=== PATIENT | female | born 1940 | race Caucasian/White ===

== ENCOUNTER → 2016-11-15 | Outpatient (CLI) | payer MEDICARE ==
[~2016-11-15] MED LIST: ACTOS30 MG PO; ASPIRIN81 M1 PO; ATARAX25 MG PO; B121000 MCG/1 IM; BACTRIM DS 8001 TA1 PO; BUMEX1 MG PO; CARDIZEM CD240 MG PO; CARDIZEM120 MG PO; CARDURA1 MG PO; CELEBREX200 MG PO; CIPRO500 MG PO; CLARITIN10 MG PO; COLACE100 MG PO; COREG25 MG PO; COUMADIN10 MG PO; COZAAR100 MG PO; COZAAR50 MG PO; DETROL LA4 MG PO; DIFLUCAN150 MG PO; FLEXERIL10 MG PO; FOSAMAX70 MG PO; HYDRALAZINE HCL25 MG PO; JANUMET 500 MG-1 TA1 PO; KENALOG0.1% TP; LANOXIN0.25 MG PO; LANTUS100 U/ML SC; LASIX40 MG PO; LIPITOR20 MG PO; MACROBID100 M1 PO; MICRO-K10 MEQ PO; MICRONASE5 MG PO; NORVASC10 MG PO; NOVOLOG FLEX100 U/ML SC; NYSTOP100000 U/G T; OYSTER CALCIUM500 M1 PO; PREDNICOT20 MG PO; PRILOSEC OTC20 MG PO; PROTONIX40 MG PO; REGLAN10 MG PO; SANCTURA20 MG PO; TESSALON PERLE100 M1 PO; TRIAMCINOLONE0.0251 T; VALTREX1 GM PO; VITAMIN D50000 I2 PO; XANAX0.25 MG PO; XANAX0.5 MG PO; ZOLOFT25 MG PO
[2016-11-15 17:03] LABS: INTERNATIONAL NORM RATIO 3.9 (2.0-3.5); PROTHROMBIN TIME 44.5 SECONDS (9.0-12.4)
== END ==
LOC: LAB 02:13
PROVIDERS: Internal Medicine Cardiovascular Disease
DX: I48.91 Unspecified atrial fibrillation (principal); Z79.01 Long term (current) use of anticoagulants

== ENCOUNTER → 2016-11-30 | Outpatient (CLI) | payer MEDICARE ==
[2016-11-30 13:23] LABS: INTERNATIONAL NORM RATIO 1.9 (2.0-3.5); PROTHROMBIN TIME 21.5 SECONDS (9.0-12.4)
== END ==
LOC: LAB 01:55
PROVIDERS: Internal Medicine Cardiovascular Disease
DX: Z01.419 Encounter for gynecological examination (general) (routine) without abnormal findings (principal); I48.91 Unspecified atrial fibrillation; Z79.01 Long term (current) use of anticoagulants; Z85.038 Personal history of other malignant neoplasm of large intestine

== ENCOUNTER → 2016-12-14 | Outpatient (CLI) | payer MEDICARE ==
[2016-12-14 16:17] LABS: INTERNATIONAL NORM RATIO 3.2 (2.0-3.5); PROTHROMBIN TIME 36.1 SECONDS (9.0-12.4)
== END ==
LOC: LAB 02:34
PROVIDERS: Internal Medicine Cardiovascular Disease
DX: I48.91 Unspecified atrial fibrillation (principal); Z79.01 Long term (current) use of anticoagulants

== ENCOUNTER → 2016-12-21 | Outpatient (CLI) | payer MEDICARE ==
[2016-12-21 16:27] LABS: INTERNATIONAL NORM RATIO 1.2 (2.0-3.5); PROTHROMBIN TIME 12.3 SECONDS (9.0-12.4)
== END ==
LOC: LAB 02:00
PROVIDERS: Internal Medicine Cardiovascular Disease
DX: I48.91 Unspecified atrial fibrillation (principal); Z79.01 Long term (current) use of anticoagulants

== ENCOUNTER → 2016-12-26 | Outpatient (CLI) | payer MEDICARE ==
[2016-12-26 17:04] LABS: INTERNATIONAL NORM RATIO 2.9 (2.0-3.5); PROTHROMBIN TIME 32.4 SECONDS (9.0-12.4)
== END ==
LOC: LAB 02:37
PROVIDERS: Internal Medicine Cardiovascular Disease
DX: I48.91 Unspecified atrial fibrillation (principal)

== ENCOUNTER → 2017-01-12 | Outpatient (CLI) | payer MEDICARE ==
[2017-01-12 16:19] LABS: INTERNATIONAL NORM RATIO 2.3 (2.0-3.5); PROTHROMBIN TIME 25.4 SECONDS (9.0-12.4)
== END ==
LOC: LAB 19:17
PROVIDERS: Internal Medicine Cardiovascular Disease
DX: I48.91 Unspecified atrial fibrillation (principal)

== ENCOUNTER 2017-01-29 15:25 | Inpatient (IN) | payer MEDICARE ==
[~2017-01-29] VITALS: Ht 160 cm; Wt 103.4 kg
--- NOTE | ~2017-01-29 | WRIGHTHP ---
[place], [place] PATIENT HISTORY AND PHYSICAL EXAM NAME: SUZANNA CHOWDHURY [facility] #: [id number] UNIT #: [id number] ROOM: 401 DOCTOR: NICOLE FISCHER MD BIRTHDATE: [birth year] DOS: 01/29/2017 HISTORY OF PRESENT ILLNESS: 1. The patient is a 76-year-old female with a past medical history of diverticulosis on colonoscopy. 2. Benign essential hypertension. 3. Type 2 diabetes mellitus. 4. Morbid obesity. 5. Chronic atrial fibrillation. 6. History of colovesical fistula and repair. 7. Ventral abdominal hernia repaired with mesh. The patient presented to the Emergency Department with complaints of dizziness. The patient had some nausea, vomiting and frequent urination. The patient was found to be dehydrated on evaluation in the Emergency Department and recommended for admission for treatment for infection and dehydration. The patient is also having difficulty with ambulation. The patient also had acute cystitis and hematuria. REVIEW OF SYSTEMS: LUNGS: No increasing shortness of breath or wheezing. GASTROINTESTINAL: Some nausea and vomiting. No diarrhea or constipation. CARDIOVASCULAR: No chest pain or palpitations. The patient has chronic atrial fibrillation. SOCIAL HISTORY: Lives at home. Denies smoking cigarettes, alcohol and drug abuse. FAMILY HISTORY: Noncontributory. HOME MEDICATIONS: The patient was taking Bactrim, Neurontin, Lipitor, Colace, diltiazem, losartan, insulin, Bumex, Coumadin, digoxin, omeprazole, Coreg, Zoloft and Jardiance. ALLERGIES: Known allergies to PENICILLIN and LATEX. PHYSICAL EXAMINATION: GENERAL: Alert, oriented, morbidly obese, standard exam except for generalized weakness. VITAL SIGNS: Blood pressure 119/66, heart rate of 50 beats per minute, breathing 20 times per minute, temperature 98 degrees Fahrenheit. LABORATORY DATA: Urine cultures are negative so far, BUN and creatinine 25 and 1. No leukocytosis. CBC normal. CT of the head without any acute process. Chest x-ray with no acute findings. White cell count improved from yesterday, it was 13,600. IMPRESSION: 1. The patient with urinary tract infection and cystitis with being treated with Levaquin and improving. [place], [place] PATIENT HISTORY AND PHYSICAL EXAM [facility]: [facility] [id number] UN[facility] #: [id number] ROOM: [facility] DOCTOR: AALIYAH LOBO,NICOLE Hernandez BIRTHDATE: [birth year] 2. Dehydration with BUN and creatinine elevation to 25 and 1.2, treated with hydration with IV fluids and patient is improving. 3. Obesity, generalized weakness and disability. The patient states she is ambulating normally in the hallways and would like to be discharged to home rather than sent for rehab with physical therapy because she is feeling better now after treatment. 4. Chronic atrial fibrillation with controlled heart rates with digoxin and diltiazem and patient anticoagulated with Coumadin. 5. The patient with chronic atrial fibrillation, anticoagulated with Coumadin. INR of 1.8. 6. Urinary tract infection secondary to urine infection, resolved with treatment with Levaquin. 7. Type 2 diabetes mellitus with reasonably controlled blood sugars ranging between 140-200 mostly. 8. Nausea, vomiting with some dehydration as completely resolved. The patient is tolerating a diet. Her blood pressure is staying normal and she can be discharged to home on oral antibiotics. The patient wants to go home because she is feeling well and she will be followed up in our office within 2 days. NICOLE FISCHER MD CM:HISPHYS:PATIENT HISTORY AND PHYSICAL EXAMINATION [phone] NICOLE FISCHER MD 01/30/171957 interface
[2017-01-29 15:35] VITALS: BP 150/66
[2017-01-29] MEDS ORDERED: JARDIANCE25 MG PO (15:37)
[2017-01-29] MEDS ORDERED: NEURONTIN100 MG PO (15:39)
[2017-01-29] MEDS ORDERED: BACTRIM DS 8001 TA1 PO (15:41)
[2017-01-29 15:59] LABS: BILIRUBIN 1+ (NEGATIVE); BLOOD NEGATIVE (NEGATIVE); CLARITY SL CLOUDY (CLEAR); COLOR YELLOW (YELLOW); GLUCOSE 2+ (NEGATIVE); KETONE TRACE (NEGATIVE); LEUKO ESTERASE TRACE (NEGATIVE); NITRITE NEGATIVE (NEGATIVE); PH 7.5 (5.0-9.0); PROTEIN 2+ (NEGATIVE)
[2017-01-29 16:07] LABS: BACTERIA TRACE; EPITHELIAL CELLS 50-55; MUCOUS TRACE; RBC 0-2 rbc/hpf (0-2)
[2017-01-29 16:08] LABS: URINE REFLEX COMMENT YES (NO); WBC 51-100 wbc/hpf (0-5)
[2017-01-29 16:19] LABS: BASO # 0.1 10*3/uL (0.0-0.1); BASO % 0.6 % (0.0-1.0); EOS # 0.1 10*3/uL (0.0-0.4); EOS % 0.7 % (1.0-4.0); HEMATOCRIT 43.5 % (37.0-47.0); HEMOGLOBIN 14.3 g/dl (12.0-16.0); LYMPH # 4.1 10*3/uL (1.3-4.4); LYMPH % 30.4 % (27.0-41.0); MEAN CELL VOLUME 90.1 fl (81.0-99.0); MEAN CORPUSCULAR HGB 29.6 pg (27.0-31.0); MEAN CORPUSCULAR HGB CONC 32.9 g/dl (33.0-37.0); MEAN PLATELET VOLUME 11.2 fl (9.6-12.3); MONO % 7.6 % (3.0-9.0); NEUT # 8.2 10*3/uL (2.3-7.9); NEUT % 60.4 % (47.0-73.0); PLATELET COUNT AUTOMATED 266 10*3/uL (130-400); RED BLOOD COUNT 4.83 10*6/uL (4.10-5.10); RED CELL DISTRI WIDTH 14.1 % (0-14.5); WHITE BLOOD COUNT 13.6 10*3/uL (4.8-10.8)
[2017-01-29 16:26] LABS: INTERNATIONAL NORM RATIO 1.8 (2.0-3.5); PROTHROMBIN TIME 20.3 SECONDS (9.0-12.4)
[2017-01-29 16:33] LABS: ALBUMIN 3.5 gm/dl (3.1-4.5); BILIRUBIN, TOTAL 0.4 mg/dl (0.2-1.0); POTASSIUM 3.7 mmol/L (3.5-5.1); TOTAL PROTEIN 7.1 gm/dL (6.4-8.2)
[2017-01-29 18:11] VITALS: BP 181/64
[2017-01-29 20:00] VITALS: BP 166/75
[2017-01-30] VITALS: BP 146/65
[2017-01-30 06:43] LABS: BASO % 0.5 % (0.0-1.0); EOS # 0.2 10*3/uL (0.0-0.4); EOS % 2.1 % (1.0-4.0); HEMATOCRIT 39.8 % (37.0-47.0); HEMOGLOBIN 12.4 g/dl (12.0-16.0); LYMPH # 2.5 10*3/uL (1.3-4.4); LYMPH % 30.9 % (27.0-41.0); MEAN CORPUSCULAR HGB 29.1 pg (27.0-31.0); MEAN CORPUSCULAR HGB CONC 31.2 g/dl (33.0-37.0); MEAN PLATELET VOLUME 11.6 fl (9.6-12.3); MONO # 0.7 10*3/uL (0.1-1.0); MONO % 8.8 % (3.0-9.0); NEUT # 4.6 10*3/uL (2.3-7.9); NEUT % 57.3 % (47.0-73.0); PLATELET COUNT AUTOMATED 188 10*3/uL (130-400); RED BLOOD COUNT 4.26 10*6/uL (4.10-5.10); RED CELL DISTRI WIDTH 14.3 % (0-14.5); WHITE BLOOD COUNT 7.9 10*3/uL (4.8-10.8)
[2017-01-30 06:51] LABS: MEAN CELL VOLUME 93.4 fl (81.0-99.0)
[2017-01-30 07:08] LABS: BUN 25 mg/dl (7-24); CARBON DIOXIDE 27 mmol/L (21-32); CHLORIDE 106 mmol/L (98-107); EST GLOM FILT AFRICAN AMERICAN > 60 ml/min; GLUCOSE 159 mg/dL (65-99); POTASSIUM 3.8 mmol/L (3.5-5.1); SODIUM 142 mmol/L (136-145)
[2017-01-30 08:00] VITALS: BP 150/62
[2017-01-30 12:00] VITALS: BP 162/83
[2017-01-30 16:00] VITALS: BP 119/66
[2017-01-30] MEDS ORDERED: CLARITIN10 MG PO (18:27)
[2017-01-30] MEDS ORDERED: CIPRO500 MG PO (18:27)
== END 2017-01-30 19:37 | disposition home or self-care (01) | DRG 690 ==
LOC: ED 15:25 → EDHOLD 17:50 → 4E 18:31
PROVIDERS: Internal Medicine; Registered Nurse
DX: N30.01 Acute cystitis with hematuria (principal); I48.1 Persistent atrial fibrillation; E86.0 Dehydration; I48.2 Chronic atrial fibrillation; E11.9 Type 2 diabetes mellitus without complications; Z68.41 Body mass index [BMI] 40.0-44.9, adult; K57.90 Diverticulosis of intestine, part unspecified, without perforation or abscess without bleeding; I10 Essential (primary) hypertension; E66.01 Morbid (severe) obesity due to excess calories; Z91.040 Latex allergy status; Z88.0 Allergy status to penicillin; Z79.899 Other long term (current) drug therapy; Z79.4 Long term (current) use of insulin; Z90.710 Acquired absence of both cervix and uterus; Z90.49 Acquired absence of other specified parts of digestive tract; Z80.9 Family history of malignant neoplasm, unspecified

== ENCOUNTER → 2017-02-07 | Outpatient (CLI) | payer MEDICARE ==
[~2017-02-07] MED LIST changes: +JARDIANCE25 MG PO; +NEURONTIN100 MG PO
[2017-02-07 13:35] LABS: INTERNATIONAL NORM RATIO 2.2 (2.0-3.5); PROTHROMBIN TIME 24.6 SECONDS (9.0-12.4)
== END ==
LOC: LAB 00:38
PROVIDERS: Internal Medicine Cardiovascular Disease
DX: I48.91 Unspecified atrial fibrillation (principal); Z79.01 Long term (current) use of anticoagulants

== ENCOUNTER → 2017-03-15 | Outpatient (CLI) | payer MEDICARE ==
[2017-03-15 16:17] LABS: INTERNATIONAL NORM RATIO 2.5 (2.0-3.5); PROTHROMBIN TIME 27.5 SECONDS (9.0-12.4)
== END ==
LOC: LAB 00:11
PROVIDERS: Internal Medicine Cardiovascular Disease
DX: I48.91 Unspecified atrial fibrillation (principal); Z79.01 Long term (current) use of anticoagulants

== ENCOUNTER → 2017-04-20 | Outpatient (CLI) | payer MEDICARE ==
[2017-04-20 14:57] LABS: INTERNATIONAL NORM RATIO 2.2 (2.0-3.5)
== END | disposition home or self-care (01) ==
LOC: LAB 00:16
PROVIDERS: Internal Medicine Cardiovascular Disease
DX: I48.91 Unspecified atrial fibrillation (principal); Z79.01 Long term (current) use of anticoagulants

== ENCOUNTER 2017-04-23 08:26 | Emergency (ER) | payer MEDICARE ==
[~2017-04-23] VITALS: Ht 160 cm; Wt 106.6 kg
[2017-04-23 08:33] VITALS: BP 149/76
[2017-04-23] MEDS ORDERED: NEURONTIN100 MG PO (10:25)
== END 2017-04-23 10:40 | disposition home or self-care (01) ==
LOC: ED 08:26
DX: M47.26 Other spondylosis with radiculopathy, lumbar region (principal); M51.36 Other intervertebral disc degeneration, lumbar region; E11.9 Type 2 diabetes mellitus without complications; E78.5 Hyperlipidemia, unspecified; I48.91 Unspecified atrial fibrillation; Z88.0 Allergy status to penicillin; Z91.040 Latex allergy status; Z79.899 Other long term (current) drug therapy; Z90.2 Acquired absence of lung [part of]

== ENCOUNTER → 2017-05-10 | Outpatient (CLI) | payer MEDICARE ==
[2017-05-10 13:31] LABS: INTERNATIONAL NORM RATIO 2.2 (2.0-3.5)
== END | disposition home or self-care (01) ==
LOC: LAB 02:11 → MRI 13:00 → LAB 13:00
PROVIDERS: Internal Medicine
DX: I48.91 Unspecified atrial fibrillation (principal); M54.9 Dorsalgia, unspecified; Z79.01 Long term (current) use of anticoagulants

== ENCOUNTER → 2017-06-15 | Outpatient (CLI) | payer MEDICARE ==
[2017-06-15 15:01] LABS: INTERNATIONAL NORM RATIO 1.8 (2.0-3.5)
== END | disposition home or self-care (01) ==
LOC: LAB 02:48
PROVIDERS: Internal Medicine Cardiovascular Disease
DX: I48.91 Unspecified atrial fibrillation (principal); Z79.01 Long term (current) use of anticoagulants

== ENCOUNTER → 2017-06-28 | Outpatient (CLI) | payer MEDICARE ==
[2017-06-28 14:29] LABS: INTERNATIONAL NORM RATIO 2.5 (2.0-3.5)
== END | disposition home or self-care (01) ==
LOC: LAB 13:45
PROVIDERS: Internal Medicine Cardiovascular Disease
DX: I48.91 Unspecified atrial fibrillation (principal); Z79.01 Long term (current) use of anticoagulants

== ENCOUNTER → 2017-08-08 | Outpatient (CLI) | payer MEDICARE ==
[2017-08-08 14:52] LABS: INTERNATIONAL NORM RATIO 2.4 (2.0-3.5)
== END | disposition home or self-care (01) ==
LOC: LAB 13:48
PROVIDERS: Internal Medicine Cardiovascular Disease
DX: I48.91 Unspecified atrial fibrillation (principal); Z79.01 Long term (current) use of anticoagulants

== ENCOUNTER → 2017-09-13 | Outpatient (CLI) | payer MEDICARE | END | disposition home or self-care (01) | LOC: LAB 15:55 | PROVIDERS: Internal Medicine Cardiovascular Disease | DX: I48.91 Unspecified atrial fibrillation (principal) ==

== ENCOUNTER 2017-10-15 11:36 | Emergency (ER) | payer MEDICARE ==
[~2017-10-15] VITALS: Ht 160 cm; Wt 107.0 kg
[2017-10-15 12:33] LABS: BILIRUBIN NEGATIVE (NEGATIVE); BLOOD 3+ (NEGATIVE); CLARITY CLOUDY (CLEAR); COLOR YELLOW (YELLOW); GLUCOSE 3+ (NEGATIVE); KETONE NEGATIVE (NEGATIVE); LEUKO ESTERASE NEGATIVE (NEGATIVE); NITRITE NEGATIVE (NEGATIVE); SPECIFIC GRAVITY 1.015 (1.005-1.030); UROBILINOGEN 0.2 E.U./dl (0.2-1.0)
[2017-10-15 12:48] LABS: BACTERIA 1+; CALCIUM OXALATE CRYSTALS 1+; RBC 31-40 rbc/hpf (0-2); WBC 16-20 wbc/hpf (0-5)
== END 2017-10-15 15:41 | disposition home or self-care (01) ==
LOC: ED 11:36
PROVIDERS: Emergency Medicine
DX: N28.89 Other specified disorders of kidney and ureter (principal); R31.9 Hematuria, unspecified; I48.91 Unspecified atrial fibrillation; R73.9 Hyperglycemia, unspecified; Z79.01 Long term (current) use of anticoagulants; Z79.4 Long term (current) use of insulin; Z88.0 Allergy status to penicillin; Z91.040 Latex allergy status

== ENCOUNTER → 2017-10-15 | Outpatient (CLI) | payer MEDICARE ==
[2017-10-15 11:40] LABS: BASO # 0.1 10*3/uL (0.0-0.1); BASO % 0.8 % (0.0-1.0); EOS # 0.2 10*3/uL (0.0-0.4); HEMATOCRIT 43.8 % (37.0-47.0); HEMOGLOBIN 14.2 g/dl (12.0-16.0); LYMPH # 2.4 10*3/uL (1.3-4.4); LYMPH % 30.7 % (27.0-41.0); MEAN CELL VOLUME 94.8 fl (81.0-99.0); MEAN CORPUSCULAR HGB 30.7 pg (27.0-31.0); MEAN CORPUSCULAR HGB CONC 32.4 g/dl (33.0-37.0); MEAN PLATELET VOLUME 11.6 fl (9.6-12.3); MONO # 0.6 10*3/uL (0.1-1.0); MONO % 7.4 % (3.0-9.0); NEUT # 4.6 10*3/uL (2.3-7.9); NEUT % 58.7 % (47.0-73.0); PLATELET COUNT AUTOMATED 171 10*3/uL (130-400); RED BLOOD COUNT 4.62 10*6/uL (4.10-5.10); RED CELL DISTRI WIDTH 14.1 % (0-14.5); WHITE BLOOD COUNT 7.9 10*3/uL (4.8-10.8)
[2017-10-15 12:15] LABS: ALBUMIN 3.2 gm/dl (3.1-4.5); CREATININE 1.11 mg/dL (0.55-1.02); FREE T4 1.03 ng/dl (0.76-1.46); POTASSIUM 4.1 mmol/L (3.5-5.1); TOTAL PROTEIN 6.5 gm/dL (6.4-8.2)
[2017-10-15 12:20] LABS: THYROID STIM HORMONE (HS) 1.25 uIU/ml (0.358-4.75)
[2017-10-15 12:41] LABS: INTERNATIONAL NORM RATIO 1.9 (2.0-3.5)
[2017-10-15 13:06] LABS: VITAMIN D, 25-HYDROXY 30.8 ng/mL (30-100)
== END | disposition home or self-care (01) ==
LOC: LAB 11:19
PROVIDERS: Internal Medicine; Internal Medicine Cardiovascular Disease
DX: Z13.1 Encounter for screening for diabetes mellitus (principal); Z13.220 Encounter for screening for lipoid disorders; Z00.01 Encounter for general adult medical examination with abnormal findings; I48.91 Unspecified atrial fibrillation; R53.81 Other malaise; E55.9 Vitamin D deficiency, unspecified; E11.9 Type 2 diabetes mellitus without complications; E78.2 Mixed hyperlipidemia; Z79.01 Long term (current) use of anticoagulants

== ENCOUNTER → 2017-11-01 | Outpatient (CLI) | payer MEDICARE ==
[2017-11-01 11:40] LABS: INTERNATIONAL NORM RATIO 1.8 (2.0-3.5)
== END | disposition home or self-care (01) ==
LOC: LAB 00:04
PROVIDERS: Internal Medicine Cardiovascular Disease
DX: I48.91 Unspecified atrial fibrillation (principal)

== ENCOUNTER → 2017-11-08 | Outpatient (CLI) | payer MEDICARE ==
[2017-11-08 13:34] LABS: INTERNATIONAL NORM RATIO 1.9 (2.0-3.5)
== END | disposition home or self-care (01) ==
LOC: LAB 12:49
PROVIDERS: Internal Medicine Cardiovascular Disease
DX: I48.91 Unspecified atrial fibrillation (principal); Z79.01 Long term (current) use of anticoagulants

== ENCOUNTER → 2017-12-18 | Outpatient (CLI) | payer MEDICARE ==
[2017-12-18 17:04] LABS: INTERNATIONAL NORM RATIO 1.4 (2.0-3.5)
== END | disposition home or self-care (01) ==
LOC: LAB 16:39
PROVIDERS: Internal Medicine Cardiovascular Disease
DX: I48.91 Unspecified atrial fibrillation (principal)

== ENCOUNTER → 2018-01-10 | Outpatient (CLI) | payer MEDICARE | END | disposition home or self-care (01) | LOC: LAB 15:55 | PROVIDERS: Internal Medicine Cardiovascular Disease | DX: I48.91 Unspecified atrial fibrillation (principal); Z79.01 Long term (current) use of anticoagulants ==

== ENCOUNTER → 2018-02-04 | Outpatient (CLI) | payer MEDICARE ==
[~2018-02-04] MED LIST changes: +AMITRIPTYLINE H10 M1 PO; +BUMETANIDE1 MG PO; +CEFUROXIME AXE250 MG PO; +DITROPAN XL5 MG PO; +KLOR-CON M2020 ME1 PO; +LANTUS SOL100 UNIT/1 SC; -LANTUS100 U/ML SC; +MIRALAX17 GM PO; +NEXIUM20 M1 PO; +NORCO 5-325 TA1 EACH PO; +VALTREX1000 MG PO; +ZOVIRAX5 GM T
[2018-02-04 17:41] LABS: INTERNATIONAL NORM RATIO 1.2 (2.0-3.5)
== END ==
LOC: LAB 17:15
PROVIDERS: Internal Medicine Cardiovascular Disease
DX: I48.91 Unspecified atrial fibrillation (principal); Z79.01 Long term (current) use of anticoagulants

== ENCOUNTER → 2018-02-14 | Outpatient (CLI) | payer MEDICARE ==
[2018-02-14 13:17] LABS: INTERNATIONAL NORM RATIO 1.5 (2.0-3.5)
== END | disposition home or self-care (01) ==
LOC: LAB 01:03
PROVIDERS: Internal Medicine Cardiovascular Disease
DX: I48.91 Unspecified atrial fibrillation (principal); Z79.01 Long term (current) use of anticoagulants

== ENCOUNTER 2018-03-06 17:08 | Inpatient (IN) | payer MEDICARE ==
[~2018-03-06] VITALS: Ht 160 cm; Wt 99.5 kg
--- NOTE | ~2018-03-06 | DS ---
[place], [place] DISCHARGE SUMMARY NAME: SUZANNA CHOWDHURY [facility] #: [id number] UNIT #: [id number] ROOM: 409 DOCTOR: ZHEN ESTEVES MD BIRTHDATE: [birth year] DOS: 03/08/2018 DIAGNOSES: 1. Urinary tract infection, sepsis ruled out. Urine culture is still pending. 2. Adult failure to thrive. 3. Renal cell carcinoma, status post nephrectomy a week ago. 4. Type 2 diabetes mellitus. 5. Chronic atrial fibrillation, on long-term use of anticoagulants. 6. History of ventral hernia repair. 7. Benign hypertension. 8. Mixed hyperlipidemia. 9. History of genital herpes. MEDICATIONS: She is on are Ceftin 250 twice daily for 5 days, Coreg 25 mg twice daily, Zoloft 25 mg at bedtime, warfarin 7.5 mg Sunday, Sunday, , Sunday and 5 mg Sunday, Sunday, Sunday; atorvastatin 20 mg at bedtime, Colace 200 daily, diltiazem 120 daily, losartan 50 daily, Lantus 42 units at bedtime, insulin sliding scale, Jardiance 25 daily, Neurontin 100 b.i.d., Bumex 1 mg daily p.r.n. for leg swelling, potassium 20 daily p.r.n. with Bumex, [place] 5 q.6 hours p.r.n., Xanax 0.5 twice a day p.r.n., Valtrex 1000 p.o. b.i.d., oxybutynin XL 5 mg b.i.d., acyclovir ointment local application, MiraLax 17 grams daily, Protonix 40 daily, amitriptyline 10 daily. HOSPITAL COURSE: The patient is a 77-year-old, comes in with complaints of abdominal pain, increased frequency of urination. The patient was admitted with diagnosis of acute kidney injury, UTI and adult failure to thrive. The patient was recently discharged from [facility] after a nephrectomy, is unable to take care of herself at home. She is placed on IV fluids, IV antibiotics. Urine culture was ordered, which is not available yet. Social service consult and PT, OT consult was obtained. Blood sugars are being checked and covered. This morning, we are awaiting insurance precertification, if it is obtained, the patient can go to rehab today for physical therapy. We will readjust antibiotics once we have the culture results. [place], [place] DISCHARGE SUMMARY NAME: SUZANNA CHOWDHURY UNIT #: [id number] ROOM: [facility] DOCTOR: ZHEN ESTEVES MD BIRTHDATE: [birth year] ZHEN ESTEVES MD CM:DISCHARG [id number] ZHEN ESTEVES MD 03/08/18 1452 interface
--- NOTE | ~2018-03-06 | PR ---
[place], [place] PROGRESS NOTE NAME: SUZANNA CHOWDHURY [facility] #: [id number] UNIT #: [id number] ROOM: 409 DOCTOR: ZHEN ESTEVES MD BIRTHDATE: [birth year] DOS: 03/08/2018 SUBJECTIVE: The patient is doing about the same, did have a good night. She had her bowel movement yesterday after multiple new meds. She does not have any new complaints today. OBJECTIVE: VITAL SIGNS: Blood pressure is 168/60, pulse of 92, respirations 20, temperature 98.9 at midnight. LUNGS: Diminished breath sounds. No wheezes, rales, rhonchi heard. HEART: Irregular. ABDOMEN: Obese. Some discomfort in her abdomen from her recent surgery. EXTREMITIES: Without any edema. LABORATORY DATA: No labs available this morning. ASSESSMENT AND PLAN: 1. Renal carcinoma status post nephrectomy. 2. Adult failure to thrive for placement to rehab today. 3. Urinary tract infection with urine culture not completed yet. The patient is on IV antibiotics. We will switch to p.o. on discharge. 4. Type 2 diabetes mellitus. Blood sugars are slightly on the high side because Lantus has been on hold. We will restart the medicine. ZHEN ESTEVES MD CM:PNTRANS 07 01 ZHEN ESTEVES MD 03/08/181999 interface
--- NOTE | ~2018-03-06 | EKG ---
[place], [place] ELECTROCARDIOGRAM REPORT NAME[facility] [id number] UNIT #: [id number] ROOM: 409 DOCTOR: NICO DRAFT REPORT BIRTHDATE: [birth year] [facility] Test Date: 2018-03-06 Test Time: 17:54:56 Pat Name: SUZANNA CHOWDHURY Department: Room: Gender: F Outreach Coordinator: : 1940 Requested By: JOSE ELLIOTT Order Number: [id number] Reading MD: Karely Germain MD Measurements Intervals [place] Rate: 78 P: 32 NV: 157 QRS: -54 QRSD: 114 T: 34 QT: 410 QTc: 468 Interpretive Statements Sinus rhythm iLBBB Electronically Signed On 03-08-2018 11:06:39 PDT by Karely Germain MD CM:EKGRPT:ELECTROCARDIOGRAM REPORT [id number] JOSE ELLIOTT EPIPHANY DRAFT REPORT JOSE ELLIOTT
--- NOTE | ~2018-03-06 | WRIGHTHP ---
[place], [place] PATIENT HISTORY AND PHYSICAL EXAM NAME: SUZANNA CHOWDHURY [facility] #: [id number] UNIT #: [id number] ROOM: 409 DOCTOR: ZHEN ESTEVES MD BIRTHDATE: [birth year] DOS: 03/06/2018 HISTORY OF PRESENT ILLNESS: The patient is 77 years old, very well known to us. She underwent nephrectomy for renal cell CA on the right side at [facility] on February 28. After a few days' stay, she was released to home day before yesterday. The visiting nurses called saying that the patient was unable to take care of herself at home and would require a skilled placement. The patient's family was informed to bring her to the Emergency Room for possible placement for PT, OT. In the ER, she was also found to have a UTI and she is admitted. She denies having any chest pains or palpitations, but has a lot of pain in her right side of the abdomen; does not have any of the chest pains or palpitation. She has not had a bowel movement for days. She has been on [place] for pain, this may have constipated her. PAST MEDICAL HISTORY: Significant for: 1. Renal cell CA, status post nephrectomy. 2. Benign hypertension. 3. Type 2 diabetes mellitus. 4. Chronic atrial fibrillation, on long-term use of anticoagulants. 5. Ventral abdominal hernia repair. 6. Diverticulosis. 7. Mixed hyperlipidemia. MEDICATIONS: She is on currently are Xanax 0.5 b.i.d. p.r.n., atorvastatin 20 daily, Bumex 1 mg daily p.r.n., Coreg 25 b.i.d., diltiazem 120 daily, Colace 100 daily, Jardiance 25 daily, Nexium 20 daily, gabapentin 100 b.i.d., [place] 5 q. 6 p.r.n., losartan 50 daily, oxybutynin 5 b.i.d., Protonix 40 daily, potassium 40 daily p.r.n., Zoloft 25 at bedtime, Detrol-LA 4 mg b.i.d., Valtrex 1000 b.i.d.; warfarin 7.5 on Sunday, , Sunday and Sunday, and 5 rest of the days; insulin Lantus 42 units at bedtime, Zovirax cream for local application. SOCIAL HISTORY: Nonsmoker, does not use any alcohol. PHYSICAL EXAMINATION: GENERAL: She is awake and alert and oriented. VITAL SIGNS: Graphic trend shows a pressure of 132/70, pulse of 80, respirations 14, afebrile. LUNGS: Diminished breath sounds. No wheezes, rales or rhonchi heard. HEART: Regular. ABDOMEN: Obese, soft, tenderness throughout her abdomen. Large scar in the right side of the abdomen. Wound is clean. There is no evidence of any drainage or cellulitis. EXTREMITIES: Without any edema. ASSESSMENT AND PLAN: The patient presents with: 1. Abdominal pain, most likely from underlying urinary tract infection. Urine culture has been sent. IV antibiotics were started along with IV fluids. 2. Obstipation. The patient is given 1 bottle of mag citrate, which has not really done anything, so Fleet's enema and Dulcolax will be continued. 3. Benign hypertension, controlled. [place], [place] PATIENT HISTORY AND PHYSICAL EXAM [facility]: [facility] [id number] [facility] #: [id number] ROOM: [facility] DOCTOR: ZHEN ESTEVES MD BIRTHDATE: [birth year] 4. Chronic atrial fibrillation, on Coumadin. Protime is subtherapeutic, possibly because the Coumadin has been on hold for the last several days. We will restart the Coumadin. 5. Adult failure to thrive. PT/OT will be consulted and the patient will need placement for short term for rehab purposes. ZHEN ESTEVES MD CM:HISPHYS:PATIENT HISTORY AND PHYSICAL EXAMINATION 2 ZHEN ESTEVES MD 03/07/1821 interface
[~2018-03-06 17:08] MED LIST changes: -AMITRIPTYLINE H10 M1 PO; -BUMETANIDE1 MG PO; -CEFUROXIME AXE250 MG PO; -DITROPAN XL5 MG PO; -KLOR-CON M2020 ME1 PO; -MIRALAX17 GM PO; -NEXIUM20 M1 PO; -NORCO 5-325 TA1 EACH PO; -VALTREX1000 MG PO; -ZOVIRAX5 GM T
[2018-03-06 17:10] VITALS: BP 123/70
[2018-03-06 18:04] LABS: BASO % 0.4 % (0.0-1.0); EOS # 0.4 10*3/uL (0.0-0.4); EOS % 4.8 % (1.0-4.0); HEMATOCRIT 33.7 % (37.0-47.0); HEMOGLOBIN 10.3 g/dl (12.0-16.0); LYMPH # 1.9 10*3/uL (1.3-4.4); LYMPH % 25.4 % (27.0-41.0); MEAN CELL VOLUME 91.8 fl (81.0-99.0); MEAN CORPUSCULAR HGB 28.1 pg (27.0-31.0); MEAN CORPUSCULAR HGB CONC 30.6 g/dl (33.0-37.0); MEAN PLATELET VOLUME 10.8 fl (9.6-12.3); MONO # 0.7 10*3/uL (0.1-1.0); MONO % 9.5 % (3.0-9.0); NEUT # 4.5 10*3/uL (2.3-7.9); NEUT % 59.6 % (47.0-73.0); PLATELET COUNT AUTOMATED 212 10*3/uL (130-400); RED BLOOD COUNT 3.67 10*6/uL (4.10-5.10); RED CELL DISTRI WIDTH 14.4 % (0-14.5); WHITE BLOOD COUNT 7.5 10*3/uL (4.8-10.8)
[2018-03-06 18:20] LABS: ALBUMIN 2.7 gm/dl (3.1-4.5); CREATININE 1.59 mg/dL (0.55-1.02); POTASSIUM 4.2 mmol/L (3.5-5.1); TOTAL PROTEIN 6.3 gm/dL (6.4-8.2)
[2018-03-06 18:41] LABS: BILIRUBIN NEGATIVE (NEGATIVE); BLOOD NEGATIVE (NEGATIVE); COLOR YELLOW (YELLOW); GLUCOSE 3+ (NEGATIVE); KETONE TRACE (NEGATIVE); LEUKO ESTERASE NEGATIVE (NEGATIVE); NITRITE POSITIVE (NEGATIVE); UROBILINOGEN 0.2 E.U./dl (0.2-1.0)
[2018-03-06 18:49] LABS: BACTERIA 3+; CLARITY SL CLOUDY (CLEAR); EPITHELIAL CELLS 0-2; WBC 31-40 wbc/hpf (0-5)
[2018-03-06 19:20] VITALS: BP 116/68
[2018-03-06 20:20] VITALS: BP 159/74
[2018-03-06] MEDS ORDERED: NEXIUM20 M1 PO (20:55)
[2018-03-06] MEDS ORDERED: BUMETANIDE1 MG PO (21:00)
[2018-03-06] MEDS ORDERED: KLOR-CON M2020 ME1 PO (21:01)
[2018-03-06] MEDS ORDERED: NORCO 5-325 TA1 EACH PO (21:03)
[2018-03-06] MEDS ORDERED: DETROL LA4 MG PO (21:03)
[2018-03-06] MEDS ORDERED: XANAX0.5 MG PO (21:06)
[2018-03-06] MEDS ORDERED: VALTREX1000 MG PO (21:08)
[2018-03-06] MEDS ORDERED: DITROPAN XL5 MG PO (21:09)
[2018-03-06] MEDS ORDERED: MIRALAX17 GM PO (21:10)
[2018-03-06] MEDS ORDERED: ZOVIRAX5 GM T (21:10)
[2018-03-06] MEDS ORDERED: PROTONIX40 MG PO (21:12)
[2018-03-07] VITALS: BP 158/64
[2018-03-07 06:57] LABS: BASO % 0.6 % (0.0-1.0); EOS # 0.4 10*3/uL (0.0-0.4); EOS % 5.7 % (1.0-4.0); HEMATOCRIT 30.9 % (37.0-47.0); HEMOGLOBIN 9.5 g/dl (12.0-16.0); LYMPH # 1.8 10*3/uL (1.3-4.4); LYMPH % 25.4 % (27.0-41.0); MEAN CELL VOLUME 92.5 fl (81.0-99.0); MEAN CORPUSCULAR HGB 28.4 pg (27.0-31.0); MEAN CORPUSCULAR HGB CONC 30.7 g/dl (33.0-37.0); MEAN PLATELET VOLUME 11.4 fl (9.6-12.3); MONO # 0.7 10*3/uL (0.1-1.0); MONO % 9.7 % (3.0-9.0); NEUT # 4.1 10*3/uL (2.3-7.9); NEUT % 58.2 % (47.0-73.0); PLATELET COUNT AUTOMATED 181 10*3/uL (130-400); RED BLOOD COUNT 3.34 10*6/uL (4.10-5.10); RED CELL DISTRI WIDTH 14.5 % (0-14.5)
[2018-03-07 07:27] LABS: POTASSIUM 4.8 mmol/L (3.5-5.1)
[2018-03-07 07:32] LABS: CREATININE 1.39 mg/dL (0.55-1.02)
[2018-03-07 08:00] VITALS: BP 158/64
[2018-03-07 12:00] VITALS: BP 151/57
[2018-03-07 16:00] VITALS: BP 142/61
[2018-03-07 20:00] VITALS: BP 136/63
[2018-03-08] VITALS: BP 168/60
[2018-03-08] MEDS ORDERED: AMITRIPTYLINE H10 M1 PO (00:44)
[2018-03-08] MEDS ORDERED: CEFUROXIME AXE250 MG PO (07:07)
[2018-03-08 08:00] VITALS: BP 163/59
[2018-03-08 12:00] VITALS: BP 116/91
== END 2018-03-08 18:40 | disposition other institution (70) | DRG 682 ==
LOC: ED 17:08 → 4E 19:30 → EDHOLD 19:30 → 4E 19:53
PROVIDERS: Internal Medicine; Nurse Practitioner
DX: N17.9 Acute kidney failure, unspecified (principal); G93.41 Metabolic encephalopathy; I48.2 Chronic atrial fibrillation; E11.9 Type 2 diabetes mellitus without complications; N30.00 Acute cystitis without hematuria; E78.2 Mixed hyperlipidemia; E66.9 Obesity, unspecified; K59.00 Constipation, unspecified; I10 Essential (primary) hypertension; K57.90 Diverticulosis of intestine, part unspecified, without perforation or abscess without bleeding; R62.7 Adult failure to thrive; Z90.5 Acquired absence of kidney; Z85.528 Personal history of other malignant neoplasm of kidney; Z79.01 Long term (current) use of anticoagulants; Z88.0 Allergy status to penicillin; Z91.040 Latex allergy status; Z91.048 Other nonmedicinal substance allergy status; Z88.8 Allergy status to other drugs, medicaments and biological substances; Z79.899 Other long term (current) drug therapy; Z79.4 Long term (current) use of insulin; Z90.49 Acquired absence of other specified parts of digestive tract; Z90.710 Acquired absence of both cervix and uterus; Z80.8 Family history of malignant neoplasm of other organs or systems; Z68.38 Body mass index [BMI] 38.0-38.9, adult

== ENCOUNTER → 2018-05-07 | Outpatient (CLI) | payer MEDICARE ==
[~2018-05-07] MED LIST changes: +AMITRIPTYLINE H10 M1 PO; +BUMETANIDE1 MG PO; +CEFUROXIME AXE250 MG PO; +DITROPAN XL5 MG PO; +KLOR-CON M2020 ME1 PO; +MIRALAX17 GM PO; +NEXIUM20 M1 PO; +NORCO 5-325 TA1 EACH PO; +VALTREX1000 MG PO; +ZOVIRAX5 GM T
[2018-05-07 13:26] LABS: INTERNATIONAL NORM RATIO 2.1 (2.0-3.5)
== END | disposition home or self-care (01) ==
LOC: LAB 12:09
PROVIDERS: Internal Medicine Cardiovascular Disease
DX: I48.91 Unspecified atrial fibrillation (principal); I42.9 Cardiomyopathy, unspecified; Z79.01 Long term (current) use of anticoagulants

== ENCOUNTER → 2018-06-07 | Outpatient (CLI) | payer MEDICARE ==
[2018-06-07 15:36] LABS: INTERNATIONAL NORM RATIO 2.2 (2.0-3.5)
== END | disposition home or self-care (01) ==
LOC: LAB 14:50
PROVIDERS: Internal Medicine Cardiovascular Disease
DX: I48.91 Unspecified atrial fibrillation (principal); I42.9 Cardiomyopathy, unspecified; Z79.01 Long term (current) use of anticoagulants

== ENCOUNTER → 2018-07-09 | Outpatient (CLI) | payer MEDICARE | END | disposition home or self-care (01) | LOC: LAB 03:32 | PROVIDERS: Internal Medicine Cardiovascular Disease | DX: I48.91 Unspecified atrial fibrillation (principal); I42.9 Cardiomyopathy, unspecified; Z79.01 Long term (current) use of anticoagulants ==

== ENCOUNTER → 2018-07-16 | Outpatient (CLI) | payer MEDICARE ==
[2018-07-16 13:01] LABS: INTERNATIONAL NORM RATIO 2.4 (2.0-3.5)
== END | disposition home or self-care (01) ==
LOC: LAB 13:41
PROVIDERS: Internal Medicine Cardiovascular Disease
DX: I48.91 Unspecified atrial fibrillation (principal); I42.9 Cardiomyopathy, unspecified; Z79.01 Long term (current) use of anticoagulants

== ENCOUNTER → 2018-08-27 | Outpatient (CLI) | payer MEDICARE ==
[2018-08-27 17:28] LABS: INTERNATIONAL NORM RATIO 1.2 (2.0-3.5)
== END | disposition home or self-care (01) ==
LOC: LAB 15:37
PROVIDERS: Internal Medicine Cardiovascular Disease
DX: I48.91 Unspecified atrial fibrillation (principal); I42.9 Cardiomyopathy, unspecified; Z79.01 Long term (current) use of anticoagulants

== ENCOUNTER → 2018-09-04 | Outpatient (CLI) | payer MEDICARE ==
[2018-09-04 14:52] LABS: ALBUMIN 3.3 gm/dl (3.1-4.5); CREATININE 1.43 mg/dL (0.55-1.02); FREE T4 1.11 ng/dl (0.76-1.46); POTASSIUM 4.1 mmol/L (3.5-5.1); TOTAL PROTEIN 6.6 gm/dL (6.4-8.2)
[2018-09-04 14:58] LABS: THYROID STIM HORMONE (HS) 0.963 uIU/ml (0.358-4.75)
[2018-09-05 10:11] LABS: CREATININE,URINE 104.2 mg/dL (Not Estab.); MICRO ALBUMIN/CRE RATIO 159.3 (0.0-30.0)
== END | disposition home or self-care (01) ==
LOC: LAB 13:42
PROVIDERS: Internal Medicine Endocrinology, Diabetes & Metabolism
DX: E11.3311 Type 2 diabetes mellitus with moderate nonproliferative diabetic retinopathy with macular edema, right eye (principal); E55.9 Vitamin D deficiency, unspecified; I48.91 Unspecified atrial fibrillation; I42.9 Cardiomyopathy, unspecified; R63.5 Abnormal weight gain; Z79.01 Long term (current) use of anticoagulants

== ENCOUNTER → 2018-10-03 | Outpatient (CLI) | payer MEDICARE ==
[2018-10-03 15:57] LABS: INTERNATIONAL NORM RATIO 1.9 (2.0-3.5)
== END | disposition home or self-care (01) ==
LOC: LAB 02:07
PROVIDERS: Internal Medicine Cardiovascular Disease
DX: I48.91 Unspecified atrial fibrillation (principal); I42.9 Cardiomyopathy, unspecified; Z79.01 Long term (current) use of anticoagulants

== ENCOUNTER → 2018-10-18 | Outpatient (CLI) | payer MEDICARE ==
[2018-10-18 11:22] LABS: INTERNATIONAL NORM RATIO 2.5 (2.0-3.5)
== END | disposition home or self-care (01) ==
LOC: LAB 00:47
PROVIDERS: Internal Medicine Cardiovascular Disease
DX: I48.91 Unspecified atrial fibrillation (principal); I42.9 Cardiomyopathy, unspecified; Z79.01 Long term (current) use of anticoagulants

== ENCOUNTER → 2018-11-07 | Outpatient (CLI) | payer MEDICARE ==
[2018-11-07 16:19] LABS: INTERNATIONAL NORM RATIO 2.3 (2.0-3.5)
== END | disposition home or self-care (01) ==
LOC: LAB 03:21
PROVIDERS: Internal Medicine Cardiovascular Disease
DX: I48.91 Unspecified atrial fibrillation (principal); I42.9 Cardiomyopathy, unspecified; Z79.01 Long term (current) use of anticoagulants

== ENCOUNTER → 2018-12-05 | Outpatient (CLI) | payer MEDICARE ==
[2018-12-05 14:32] LABS: INTERNATIONAL NORM RATIO 3.1 (2.0-3.5)
== END | disposition home or self-care (01) ==
LOC: LAB 01:21
PROVIDERS: Internal Medicine Cardiovascular Disease
DX: I48.91 Unspecified atrial fibrillation (principal); I42.9 Cardiomyopathy, unspecified; Z79.01 Long term (current) use of anticoagulants

== ENCOUNTER → 2018-12-18 | Outpatient (CLI) | payer MEDICARE ==
[2018-12-18 10:55] LABS: INTERNATIONAL NORM RATIO 1.7 (2.0-3.5)
== END | disposition home or self-care (01) ==
LOC: LAB 01:25
PROVIDERS: Internal Medicine Cardiovascular Disease
DX: E11.3319 Type 2 diabetes mellitus with moderate nonproliferative diabetic retinopathy with macular edema, unspecified eye (principal); E55.9 Vitamin D deficiency, unspecified; E53.8 Deficiency of other specified B group vitamins; I48.91 Unspecified atrial fibrillation

== ENCOUNTER → 2019-01-02 | Outpatient (CLI) | payer MEDICARE ==
[2019-01-02 16:59] LABS: INTERNATIONAL NORM RATIO 3.5 (2.0-3.5)
== END | disposition home or self-care (01) ==
LOC: LAB 01-01 23:47
PROVIDERS: Internal Medicine Cardiovascular Disease
DX: I48.91 Unspecified atrial fibrillation (principal); I42.9 Cardiomyopathy, unspecified; Z79.01 Long term (current) use of anticoagulants

== ENCOUNTER → 2019-01-08 | Outpatient (CLI) | payer MEDICARE | END | disposition home or self-care (01) | LOC: LAB 01-07 23:43 | PROVIDERS: Internal Medicine Cardiovascular Disease | DX: I48.91 Unspecified atrial fibrillation (principal); I42.9 Cardiomyopathy, unspecified; Z90.01 Acquired absence of eye ==

== ENCOUNTER → 2019-01-20 | Outpatient (CLI) | payer MEDICARE ==
[2019-01-20 17:22] LABS: INTERNATIONAL NORM RATIO 3.6 (2.0-3.5)
== END | disposition home or self-care (01) ==
LOC: LAB 16:08
PROVIDERS: Internal Medicine Cardiovascular Disease
DX: I48.91 Unspecified atrial fibrillation (principal); I42.9 Cardiomyopathy, unspecified; Z79.01 Long term (current) use of anticoagulants

== ENCOUNTER → 2019-02-06 | Outpatient (CLI) | payer MEDICARE ==
[2019-02-06 12:55] LABS: INTERNATIONAL NORM RATIO 1.9 (2.0-3.5)
== END | disposition home or self-care (01) ==
LOC: LAB 00:03
PROVIDERS: Dentist Oral and Maxillofacial Surgery
DX: I48.91 Unspecified atrial fibrillation (principal); I42.9 Cardiomyopathy, unspecified

== ENCOUNTER → 2019-03-28 | Outpatient (CLI) | payer MEDICARE ==
[2019-03-28 16:10] LABS: INTERNATIONAL NORM RATIO 3.2 (2.0-3.5)
== END | disposition home or self-care (01) ==
LOC: LAB 00:13
PROVIDERS: Internal Medicine Cardiovascular Disease
DX: I48.91 Unspecified atrial fibrillation (principal); I42.9 Cardiomyopathy, unspecified; Z79.01 Long term (current) use of anticoagulants

== ENCOUNTER → 2019-04-16 | Outpatient (CLI) | payer MEDICARE ==
[2019-04-16 10:53] LABS: INTERNATIONAL NORM RATIO 2.4 (2.0-3.5)
== END | disposition home or self-care (01) ==
LOC: LAB 00:21
PROVIDERS: Internal Medicine Cardiovascular Disease
DX: I48.91 Unspecified atrial fibrillation (principal); I42.9 Cardiomyopathy, unspecified; Z79.01 Long term (current) use of anticoagulants

== ENCOUNTER → 2019-04-23 | Outpatient (CLI) | payer MEDICARE ==
[2019-04-23 10:45] LABS: INTERNATIONAL NORM RATIO 2.1 (2.0-3.5)
== END | disposition home or self-care (01) ==
LOC: LAB 12:47
PROVIDERS: Internal Medicine Cardiovascular Disease
DX: I48.91 Unspecified atrial fibrillation (principal); I42.9 Cardiomyopathy, unspecified; Z79.01 Long term (current) use of anticoagulants

== ENCOUNTER → 2019-07-09 | Outpatient (CLI) | payer MEDICARE ==
[2019-07-09 16:59] LABS: INTERNATIONAL NORM RATIO 1.4 (2.0-3.5)
== END | disposition home or self-care (01) ==
LOC: LAB 14:25
PROVIDERS: Internal Medicine Cardiovascular Disease
DX: I48.91 Unspecified atrial fibrillation (principal); Z79.01 Long term (current) use of anticoagulants

== ENCOUNTER → 2019-07-15 | Outpatient (CLI) | payer MEDICARE ==
[2019-07-15 14:22] LABS: INTERNATIONAL NORM RATIO 1.8 (2.0-3.5)
== END | disposition home or self-care (01) ==
LOC: LAB 01:27
PROVIDERS: Internal Medicine Cardiovascular Disease
DX: I48.91 Unspecified atrial fibrillation (principal)

== ENCOUNTER → 2019-08-11 | Outpatient (CLI) | payer MEDICARE ==
[2019-08-11 11:14] LABS: INTERNATIONAL NORM RATIO 1.1 (2.0-3.5)
== END | disposition home or self-care (01) ==
LOC: LAB 00:10
PROVIDERS: Internal Medicine Cardiovascular Disease
DX: I48.91 Unspecified atrial fibrillation (principal)

== ENCOUNTER → 2019-09-02 | Outpatient (CLI) | payer MEDICARE ==
[2019-09-02 13:27] LABS: INTERNATIONAL NORM RATIO 1.2 (2.0-3.5)
== END | disposition home or self-care (01) ==
LOC: LAB 00:24
PROVIDERS: Internal Medicine Cardiovascular Disease
DX: I48.91 Unspecified atrial fibrillation (principal); Z79.01 Long term (current) use of anticoagulants

== ENCOUNTER → 2019-09-09 | Outpatient (CLI) | payer MEDICARE ==
[2019-09-09 16:53] LABS: INTERNATIONAL NORM RATIO 2.6 (2.0-3.5)
== END | disposition home or self-care (01) ==
LOC: LAB 16:16
PROVIDERS: Internal Medicine Cardiovascular Disease
DX: I48.91 Unspecified atrial fibrillation (principal); Z79.01 Long term (current) use of anticoagulants

== ENCOUNTER → 2019-10-10 | Outpatient (CLI) | payer MEDICARE ==
[2019-10-10 10:49] LABS: INTERNATIONAL NORM RATIO 1.9 (2.0-3.5)
== END | disposition home or self-care (01) ==
LOC: LAB 01:26
PROVIDERS: Internal Medicine Cardiovascular Disease
DX: I48.91 Unspecified atrial fibrillation (principal); Z79.01 Long term (current) use of anticoagulants

== ENCOUNTER → 2020-02-27 | Outpatient (CLI) | payer MEDICARE | END | disposition home or self-care (01) | LOC: US 10:00 | DX: R42 Dizziness and giddiness (principal) ==

== ENCOUNTER 2020-05-05 14:24 | Emergency (ER) | payer MEDICARE ==
[~2020-05-05] VITALS: Ht 624.8 cm; Wt 95.3 kg
[~2020-05-05 14:24] MED LIST changes: -COZAAR50 MG PO
[2020-05-05 14:39] VITALS: BP 146/99
[2020-05-05 15:38] LABS: BASO # 0.1 10*3/uL (0.0-0.1); BASO % 0.6 % (0.0-1.0); EOS # 0.2 10*3/uL (0.0-0.4); EOS % 2.5 % (1.0-4.0); HEMATOCRIT 40.4 % (37.0-47.0); LYMPH # 2.8 10*3/uL (1.3-4.4); LYMPH % 33.3 % (27.0-41.0); MEAN CELL VOLUME 90.4 fl (81.0-99.0); MEAN CORPUSCULAR HGB 28.4 pg (27.0-31.0); MEAN CORPUSCULAR HGB CONC 31.4 g/dl (33.0-37.0); MEAN PLATELET VOLUME 11.4 fl (9.6-12.3); MONO # 0.7 10*3/uL (0.1-1.0); NEUT # 4.6 10*3/uL (2.3-7.9); NEUT % 55.4 % (47.0-73.0); PLATELET COUNT AUTOMATED 174 10*3/uL (130-400); RED BLOOD COUNT 4.47 10*6/uL (4.10-5.10); RED CELL DISTRI WIDTH 13.7 % (0-14.5); WHITE BLOOD COUNT 8.4 10*3/uL (4.8-10.8)
[2020-05-05 15:56] LABS: ACT PARTIAL THROMBO TIME 28.8 SECONDS (20.0-32.1); INTERNATIONAL NORM RATIO 1.4 (2.0-3.5)
[2020-05-05 15:57] LABS: ALBUMIN 3.1 gm/dl (3.1-4.5); CREATININE 1.5 mg/dL (0.55-1.02); POTASSIUM 4.7 mmol/L (3.5-5.1); TOTAL PROTEIN 6.5 gm/dL (6.4-8.2)
== END 2020-05-05 17:09 | disposition home or self-care (01) ==
LOC: ED 14:24
PROVIDERS: Nurse Practitioner Family
DX: S86.912A Strain of unspecified muscle(s) and tendon(s) at lower leg level, left leg, initial encounter (principal); I48.91 Unspecified atrial fibrillation; I10 Essential (primary) hypertension; J45.909 Unspecified asthma, uncomplicated; Z86.73 Personal history of transient ischemic attack (TIA), and cerebral infarction without residual deficits; Z88.0 Allergy status to penicillin; Z88.8 Allergy status to other drugs, medicaments and biological substances; Z79.899 Other long term (current) drug therapy; Z79.4 Long term (current) use of insulin; Z79.01 Long term (current) use of anticoagulants; X58.XXXA Exposure to other specified factors, initial encounter; Y93.89 Activity, other specified; Y92.89 Other specified places as the place of occurrence of the external cause; Y99.8 Other external cause status

== ENCOUNTER 2020-05-07 15:49 | Inpatient (IN) | payer MEDICARE ==
[~2020-05-07] VITALS: Ht 160 cm; Wt 106.7 kg
[2020-05-07 15:52] VITALS: BP 154/78
[2020-05-07 16:10] LABS: BASO # 0.1 10*3/uL (0.0-0.1); BASO % 0.7 % (0.0-1.0); EOS # 0.2 10*3/uL (0.0-0.4); HEMATOCRIT 39.3 % (37.0-47.0); LYMPH # 2.3 10*3/uL (1.3-4.4); LYMPH % 30.1 % (27.0-41.0); MEAN CELL VOLUME 90.1 fl (81.0-99.0); MEAN CORPUSCULAR HGB 28.4 pg (27.0-31.0); MEAN CORPUSCULAR HGB CONC 31.6 g/dl (33.0-37.0); MEAN PLATELET VOLUME 11.4 fl (9.6-12.3); MONO # 0.6 10*3/uL (0.1-1.0); MONO % 8.3 % (3.0-9.0); NEUT # 4.4 10*3/uL (2.3-7.9); NEUT % 57.8 % (47.0-73.0); PLATELET COUNT AUTOMATED 179 10*3/uL (130-400); RED BLOOD COUNT 4.36 10*6/uL (4.10-5.10); RED CELL DISTRI WIDTH 13.7 % (0-14.5); WHITE BLOOD COUNT 7.6 10*3/uL (4.8-10.8)
[2020-05-07 16:27] LABS: ALBUMIN 3.2 gm/dl (3.1-4.5); CREATININE 1.51 mg/dL (0.55-1.02); POTASSIUM 4.4 mmol/L (3.5-5.1); TOTAL PROTEIN 6.6 gm/dL (6.4-8.2)
[2020-05-07 16:50] LABS: COLOR DARK YELLOW (YELLOW)
[2020-05-07 16:51] LABS: BILIRUBIN NEGATIVE; BLOOD NEGATIVE (NEGATIVE); CLARITY TURBID (CLEAR); GLUCOSE NEGATIVE; KETONE NEGATIVE; LEUKO ESTERASE 2+ (NEGATIVE); NITRITE POSITIVE (NEGATIVE); SPECIFIC GRAVITY 1.025 (1.001-1.030)
[2020-05-07 17:03] LABS: BACTERIA 4+; URIC ACID CRYSTALS 2+; WBC 41-50 wbc/hpf (0-5)
[2020-05-07 18:15] VITALS: BP 198/100
--- NOTE | 2020-05-07 18:15 | NUR ---
Time: 1814 A 80 year old FEMALE admitted to [facility] under services of ZHEN SMART MD. Pt. arrived via stretcher from ER. Chief complaint: INABILITY TO AMBULATE, LEFT KNEE PAIN, UTI. DILCIA COSTA
[2020-05-07] MEDS ORDERED: GLUCOTROL5 MG PO (18:36)
[2020-05-07] MEDS ORDERED: HYDRALAZINE HYD50 MG PO (18:40)
[2020-05-07] MEDS ORDERED: TRULICITY1.5 MG/0.5 SC (18:49)
[2020-05-07] MEDS ORDERED: CYCLOBENZAPRINE10 MG PO (18:50)
--- NOTE | 2020-05-07 19:05 | NUR ---
NEW ADMISSION ORDERS RECEIVED FROM AND NOTIFIED OF BP OF 198/100 AND SHE STATES TO JUST CONTINUE MEDS AND GIVE THEN MONITOR BP.
--- NOTE | 2020-05-07 19:26 | NUR ---
PER CONSULT PER EMAILS WE ARE NOT TO CONSULT AFTER 7 PM. WILL PASS ON TO EYE SURGEON NURSE TO HAVE CONSULTED AFTER 7AM TOMORROW.
--- NOTE | 2020-05-07 19:53 | NUR ---
MEDICATION SENT TO PHARMACY AFTER BEING VERIFIED WITH CACHORRO FREGOSO. PATIENT HAS FRIDAYS PILL OUT OF PILL BOX. PATIENT AWARE OF THIS
--- NOTE | 2020-05-07 23:10 | NUR ---
REPORT RECEIVED. PT AWAKE AT THIS TIME WATCHING TV. NO COMPLAINTS. CALL LIGHT IN REACH
[2020-05-08] VITALS: BP 160/80
--- NOTE | 2020-05-08 01:00 | NUR ---
PT LYING IN BED WITH EYES CLOSED
--- NOTE | 2020-05-08 02:37 | NUR ---
TYLENOL GIVEN FOR COMPLAINTS OF LEFT KNEE PAIN. WILL MONITOR
--- NOTE | 2020-05-08 03:35 | NUR ---
TYLENOL APPEARS EFFECTIVE, PT ASLEEP
[2020-05-08 06:20] LABS: BASO % 0.6 % (0.0-1.0); EOS # 0.2 10*3/uL (0.0-0.4); EOS % 3.6 % (1.0-4.0); HEMATOCRIT 36.4 % (37.0-47.0); LYMPH # 2.3 10*3/uL (1.3-4.4); LYMPH % 34.2 % (27.0-41.0); MEAN CELL VOLUME 91.2 fl (81.0-99.0); MEAN CORPUSCULAR HGB 28.1 pg (27.0-31.0); MEAN CORPUSCULAR HGB CONC 30.8 g/dl (33.0-37.0); MEAN PLATELET VOLUME 12.4 fl (9.6-12.3); MONO # 0.7 10*3/uL (0.1-1.0); MONO % 10.1 % (3.0-9.0); NEUT # 3.5 10*3/uL (2.3-7.9); NEUT % 51.2 % (47.0-73.0); PLATELET COUNT AUTOMATED 147 10*3/uL (130-400); RED BLOOD COUNT 3.99 10*6/uL (4.10-5.10); RED CELL DISTRI WIDTH 13.8 % (0-14.5); WHITE BLOOD COUNT 6.7 10*3/uL (4.8-10.8)
[2020-05-08 06:27] LABS: CREATININE 1.36 mg/dL (0.55-1.02); POTASSIUM 4.2 mmol/L (3.5-5.1)
[2020-05-08 06:38] LABS: INTERNATIONAL NORM RATIO 1.9 (2.0-3.5)
--- NOTE | 2020-05-08 07:13 | NUR ---
DR. HOPPER ANSWERING SERVICE NOTIFIED OF CONSULT
--- NOTE | 2020-05-08 07:30 | NUR ---
DR. HOPPER RETURNED CALL, MADE AWARE OF CONSULT AND STATES HE WILL BE IN LATER TODAY.
--- NOTE | 2020-05-08 07:30 | NUR ---
ASSUMED CARE FOR PT AT THIS TIME, PT RESTING IN BED. RESPIRATIONS EASY AND NONLABORED ON 2L NC. SIDE RAILS UPX 2, CALL LIGHT WITHIN REACH.
[2020-05-08 08:00] VITALS: BP 140/80
[2020-05-08] MEDS ORDERED: DETROL LA4 MG PO (10:11)
--- NOTE | 2020-05-08 10:17 | NUR ---
Stitcher Hand in to talk to patient. Patient states lives at home with alone. There are only out back steps in the home. Physician: Dr. Solares Pharmacy: [facility] Home health services: [facility]/passport services Patient's level of ADLs: MODERATE ASSIST Patient has working utilities: yes DME: rollator walker and motorized scooter Follow-up physician's appointment after d/c: prefers to make her own appointment Does patient want to access PORTAL?: no Discharge plan In to see patient to discuss discharge plans. Patient stated she currently has passport services, her patient case coordinator is Negin. She receives aides from [facility] 3 hours a day 3 days per week. Negin is trying to increase it to 5 days per week. Patient is stating she would like to be referred to [facility], she was there in February of 2018. . PAKO VALDEZ
--- NOTE | 2020-05-08 11:04 | NUR ---
DR. HOPPER IN TO SEE PT AT THIS TIME.
--- NOTE | 2020-05-08 11:05 | NUR ---
PRN TYLENOL GIVEN PER REQUEST FOR L KNEE PAIN 5/10, REPOSITIONED TO LITTLE EFFECT.
[2020-05-08 12:00] VITALS: BP 132/80
--- NOTE | 2020-05-08 12:05 | NUR ---
PT REPORTS TYLENOL EFFECTIVE.
--- NOTE | 2020-05-08 15:02 | NUR ---
PT RESTING IN BED ON CELL PHONE, NO DISTRESS NOTED. RESPIRATIONS EASY AND NONLABORED ON ROOM AIR. CALL LIGHT WITHIN REACH, SIDRAILS UPX2, BED ALARM ACTIVATED.
--- NOTE | 2020-05-08 15:17 | NUR ---
PT ASSISTED TO BSC AT THIS TIME, CONTINENT OF 400 ML OF PITA URINE. ASSISTED BACK TO BED AND REQUESTING TO SIT UP FOR A LITTLE BIT. CALL LIGHT WITHIN REACH.
[2020-05-08 16:00] VITALS: BP 143/82
--- NOTE | 2020-05-08 16:42 | NUR ---
PT REQUESTING PRN TYLENOL FOR 3/10 L KNEE PAIN. REPOSITIONED TO LITTLE EFFECT. SEE EMAR.
--- NOTE | 2020-05-08 17:47 | NUR ---
PT REPORTING PRN TYLENOL EFFECTIVE FOR PAIN CONTROL.
[2020-05-08 20:00] VITALS: BP 160/77
--- NOTE | 2020-05-08 22:26 | NUR ---
MEDICATED WITH PREP H SUPPOSITORY PER PRN ORDER FOR C/O HEMORRHOIDS.
--- NOTE | 2020-05-08 23:30 | NUR ---
PREP H SUPPOSITORY EFFECTIVE.
[2020-05-09] VITALS: BP 158/58
[2020-05-09 05:37] LABS: CREATININE 1.53 mg/dL (0.55-1.02); POTASSIUM 4.2 mmol/L (3.5-5.1)
--- NOTE | 2020-05-09 06:00 | NUR ---
PT UP TO BSC WITHOUT ASSIST. DID NOT USE CALL LIGHT. PT STATES WHEN SHE GOT UP IT FELT LIKE HER LEFT KNEE POPPED. DR ESTEVES HERE AND NEW ORDERS RECEIVED. PT ASKED TO MAKE SURE TO USE CALL LIGHT FOR ASSISTANCE.
[2020-05-09 06:01] LABS: BASO # 0.1 10*3/uL (0.0-0.1); BASO % 0.9 % (0.0-1.0); EOS # 0.3 10*3/uL (0.0-0.4); EOS % 4.8 % (1.0-4.0); HEMATOCRIT 37.8 % (37.0-47.0); LYMPH % 34.9 % (27.0-41.0); MEAN CELL VOLUME 92.2 fl (81.0-99.0); MEAN CORPUSCULAR HGB 28.8 pg (27.0-31.0); MEAN CORPUSCULAR HGB CONC 31.2 g/dl (33.0-37.0); MEAN PLATELET VOLUME 12.3 fl (9.6-12.3); MONO # 0.5 10*3/uL (0.1-1.0); MONO % 8.6 % (3.0-9.0); NEUT # 2.9 10*3/uL (2.3-7.9); NEUT % 50.6 % (47.0-73.0); PLATELET COUNT AUTOMATED 149 10*3/uL (130-400); WHITE BLOOD COUNT 5.8 10*3/uL (4.8-10.8)
[2020-05-09 06:10] LABS: INTERNATIONAL NORM RATIO 2.1 (2.0-3.5)
[2020-05-09 08:00] VITALS: BP 149/62
--- NOTE | 2020-05-09 10:00 | NUR ---
PT ASSISTED WITH BED BATH AT THIS TIME, ORAL CARE PROVIDED WELL. REPOSITIONED IN BED FOR COMFORT. CALL LIGHT WITHIN REACH.
--- NOTE | 2020-05-09 10:05 | NUR ---
DURING PT BATH, REDNESS NOTED TO R BREAST, AREA CLEANSED, DRIED AND ORDER FOR NYSTATIN POWDER HAS BEEN OBTAINED.
--- NOTE | 2020-05-09 10:09 | NUR ---
PT REQUESTING TYLENOL FOR 6/10 PAIN TO L KNEE. L KNEE ELEVATED. SEE EMAR, CALL LIGHT WITHIN REACH.
--- NOTE | 2020-05-09 11:08 | NUR ---
PT REPORTS PRN TYLENOL EFFECTIVE.
--- NOTE | 2020-05-09 11:39 | NUR ---
PT REQUESTING GLUCERNA WITH MEALS, DR. ESTEVES MADE AWARE, NEW ORDERS OBTAINED.
[2020-05-09 12:00] VITALS: BP 150/72
[2020-05-09 16:00] VITALS: BP 146/75
--- NOTE | 2020-05-09 23:00 | NUR ---
ASSUMED CARE FOR THIS PT AT THIS TIME. PT RESTING QUIETLY IN BED. AWOKEN EASILY. C/O LT KNEE PAIN. REPOSITIONED FOR COMFORT. CALL LIGHT IN REACH.
[2020-05-10] VITALS: BP 151/72
[2020-05-10 06:01] LABS: CREATININE 1.51 mg/dL (0.55-1.02); POTASSIUM 3.8 mmol/L (3.5-5.1)
[2020-05-10 06:04] LABS: BASO # 0.1 10*3/uL (0.0-0.1); BASO % 0.9 % (0.0-1.0); EOS # 0.3 10*3/uL (0.0-0.4); EOS % 4.8 % (1.0-4.0); HEMATOCRIT 36.1 % (37.0-47.0); LYMPH # 2.2 10*3/uL (1.3-4.4); LYMPH % 38.4 % (27.0-41.0); MEAN CELL VOLUME 90.5 fl (81.0-99.0); MEAN CORPUSCULAR HGB 28.3 pg (27.0-31.0); MEAN CORPUSCULAR HGB CONC 31.3 g/dl (33.0-37.0); MEAN PLATELET VOLUME 12.1 fl (9.6-12.3); MONO # 0.5 10*3/uL (0.1-1.0); MONO % 9.6 % (3.0-9.0); NEUT # 2.6 10*3/uL (2.3-7.9); NEUT % 46.1 % (47.0-73.0); PLATELET COUNT AUTOMATED 153 10*3/uL (130-400); RED BLOOD COUNT 3.99 10*6/uL (4.10-5.10); RED CELL DISTRI WIDTH 13.9 % (0-14.5); WHITE BLOOD COUNT 5.7 10*3/uL (4.8-10.8)
[2020-05-10 06:16] LABS: INTERNATIONAL NORM RATIO 2.6 (2.0-3.5)
--- NOTE | 2020-05-10 07:52 | NUR ---
HORTICULTURE SUPERVISOR FAXED REFERRAL TO [facility] FOR REVIEW. WILL NEED PT/OT EVALS. PRECERT IS REQUIRED.
[2020-05-10 08:00] VITALS: BP 136/66
--- NOTE | 2020-05-10 09:48 | NUR ---
PHYSICAL THERAPY PT screen and eval orders received will follow. Kwasi Gillespie SPT Yee Quigley PT
--- NOTE | 2020-05-10 10:29 | NUR ---
NOVEL CORONOVIUS SWAB COLLECTED PER PROTOCOL.
--- NOTE | 2020-05-10 10:30 | NUR ---
CM in to see patient. She is sitting on the edge of her bed. Discussed referral to [facility] and explained [facility] at this time is full. She states she doesn't want to go anywhere else but she would consider going to [facility] if and when a bed opened at [facility] they would move her. jet worker notified.
--- NOTE | 2020-05-10 11:30 | NUR ---
PHYSICAL THERAPY Physical Therapy evaluation completed on 4th floor with full evaluation to follow. Recommend physical therapy per plan of care and SNF upon discharge. Thank you for this referral. Yee Quigley PT
--- NOTE | 2020-05-10 11:55 | NUR ---
Occupational Therapy evaluation completed on 4 with full eval to follow. Precautions include fall risk; bed alarm, NWB LLE, left knee pain, high complexity level 00386. Recommend OT per POC and SNF to enable return home alone at independent level. Thank you for this referral. Genoveva Crespo OTR/l
[2020-05-10 12:00] VITALS: BP 138/70
--- NOTE | 2020-05-10 12:34 | NUR ---
SPOKE WITH DR ESTEVES ABOUT UPDATES ON HOME MED RECONCILIATION. ORDER RECIEVED.
--- NOTE | 2020-05-10 13:20 | NUR ---
PRECERT HAS BEEN OBTAINED. PATIENT CAN GO TO [facility] WHEN MEDICALLY STABLE. NECKTIE MAKER IS AWARE.
--- NOTE | 2020-05-10 14:43 | NUR ---
Discussed with patient she will be able to discharge to [facility] when medically stable and precert is received. Dr. Solares notified.
[2020-05-10 16:00] VITALS: BP 132/67
--- NOTE | 2020-05-10 16:35 | NUR ---
Occupational Therapy screen received and evaluation completed. Thank you for this referral. Genoveva Crespo OTR/l
--- NOTE | 2020-05-10 19:31 | NUR ---
SPOKE TO DR HOPPER REGARDING BONE SCAN, STATES THAT BONE SCAN WAS NEGATIVE, AND THAT PATIENT CAN BE FULL WEIGHT BEARING TOLERATED AND HE WILL SEE PATIENT TOMORROW TO DISCUSS POSSIBILITY OF INJECTION TO THE AFFECTED KNEE.
[2020-05-10 20:00] VITALS: BP 163/63
--- NOTE | 2020-05-10 23:49 | NUR ---
PATIENT MEDICATED WITH TYLENOL PER DRS ORDERS FOR COMPLAINTS OF HEADACHE AND PAIN TO HER KNEE. RN WILL MONITOR FOR EFFECTIVENESS
[2020-05-11] VITALS: BP 158/71
--- NOTE | 2020-05-11 00:49 | NUR ---
PATIENT STATES EARLIER MEDICATION HAS HELPED REDUCE PAIN IN KNEE AND ALSO PAIN FROM HEADACHE
--- NOTE | 2020-05-11 07:27 | NUR ---
LEATHER REPAIRER FAXED UPDATES TO [facility]. PRECERT HAS BEEN OBTAINED. PHYSICAL PLANT EMPLOYEE IS AWARE.
[2020-05-11 08:00] VITALS: BP 136/60
--- NOTE | 2020-05-11 08:09 | NUR ---
PHYSICAL THERAPY Pt had MRI and Bone Scan of L knee 05/10. MRI showing medial meniscus tear but no fx. Bone scan no fx. Per nursing note by [place] at 05/10 at 19:31 per pt may now be WBAT as prior orders for NWB of LLE/knee. Will await Ortho note and update goals accordingly. Yee Quigley PT
--- NOTE | 2020-05-11 08:11 | NUR ---
ASBESTOS SIDING MECHANIC COMPLETED HENS.
[2020-05-11] MEDS ORDERED: CEFUROXIME AXE250 MG PO (08:45)
[2020-05-11] MEDS ORDERED: DICLOFENAC SOD100 G1 T (08:45)
[2020-05-11] MEDS ORDERED: NORCO 5-325 TA1 EACH PO (08:46)
--- NOTE | 2020-05-11 09:12 | NUR ---
PHYSICAL THERAPY Per Ortho note this AM pt may be WBAT on the LLE new goals for functional status updated as intial assessment pt NWB of the LLE 05/10 New PT STG 4-5 days 1. STS Min assist x 1 from bed and recliner chair 2. Amb with FWW 20-25 ft with Min assist 1-2 WBAT LLE as per new orders 3. BLE 2 x 10 AROM Continue to recomend SNF at discharge will continue to follow per POC Yee Quigley PT
--- NOTE | 2020-05-11 09:31 | NUR ---
COMMERCIAL FISHING VESSEL OPERATOR NOTIFIED OF PATIENT DISCHARGE. COMMERCIAL FISHING VESSEL OPERATOR SPOKE WITH [facility] VAZQUEZ. COMMERCIAL FISHING VESSEL OPERATOR SPOKE WITH [facility] AND ARRANGED FOR AN 11A TRANSPORT. COMMERCIAL FISHING VESSEL OPERATOR NOTIFIED [facility] AND PATIENTS DAUGHTER HALI OF DISCHARGE. COMMERCIAL FISHING VESSEL OPERATOR PROVIDED HALI WITH CONTACT NUMBER FOR [facility]. COMMERCIAL FISHING VESSEL OPERATOR FAXED DISCHARGE ORDERS TO [facility].
--- NOTE | 2020-05-11 11:14 | NUR ---
PT TRANSPORTED AT THIS TIME VIA AMBULANCE TO [facility].
--- NOTE | 2020-05-11 11:14 | NUR ---
REPORT GIVEN TO [facility] AND [facility]. HEPLOCK REMOVED. DISCHARGE MEDS REVIEWED WITH PATIENT.
--- NOTE | 2020-05-12 16:12 | NUR ---
OCCUPATIONAL THERAPY CO-SIGN I approve of the Occupational Therapy notes written above. TIMMY JAVIER OTR/[place]
== END 2020-05-11 11:14 | DRG 563 ==
LOC: ED 15:49 → 4E 17:15 → EDHOLD 17:15 → ICCU 17:36 → 4E 05-09 18:16 → 5E 05-09 23:22 → 4E 05-09 23:25
PROVIDERS: Nurse Practitioner Family; ADMIT Internal Medicine; ATTEND Internal Medicine
DX: S83.232A Complex tear of medial meniscus, current injury, left knee, initial encounter (principal); N30.00 Acute cystitis without hematuria; I48.21 Permanent atrial fibrillation; Z16.23 Resistance to quinolones and fluoroquinolones; N17.9 Acute kidney failure, unspecified; E11.65 Type 2 diabetes mellitus with hyperglycemia; B96.20 Unspecified Escherichia coli [E. coli] as the cause of diseases classified elsewhere; M47.816 Spondylosis without myelopathy or radiculopathy, lumbar region; E78.2 Mixed hyperlipidemia; R26.2 Difficulty in walking, not elsewhere classified; E11.22 Type 2 diabetes mellitus with diabetic chronic kidney disease; I12.9 Hypertensive chronic kidney disease with stage 1 through stage 4 chronic kidney disease, or unspecified chronic kidney disease; M17.12 Unilateral primary osteoarthritis, left knee; Z20.828 Contact with and (suspected) exposure to other viral communicable diseases; N18.3 Chronic kidney disease, stage 3 (moderate); R62.7 Adult failure to thrive; W18.30XA Fall on same level, unspecified, initial encounter; Y92.098 Other place in other non-institutional residence as the place of occurrence of the external cause; Y93.89 Activity, other specified; Y99.8 Other external cause status; Z90.5 Acquired absence of kidney; Z85.528 Personal history of other malignant neoplasm of kidney; Z79.01 Long term (current) use of anticoagulants; Z87.440 Personal history of urinary (tract) infections; Z88.0 Allergy status to penicillin; Z88.6 Allergy status to analgesic agent; Z91.040 Latex allergy status; Z91.09 Other allergy status, other than to drugs and biological substances; Z79.899 Other long term (current) drug therapy; Z90.49 Acquired absence of other specified parts of digestive tract; Z80.8 Family history of malignant neoplasm of other organs or systems

== ENCOUNTER → 2022-07-26 | Outpatient (CLI) | payer MEDICARE ==
[~2022-07-26] MED LIST changes: +CYCLOBENZAPRINE10 MG PO; +DICLOFENAC SOD100 G1 T; +GLUCOTROL5 MG PO; +HYDRALAZINE HYD50 MG PO; +TRULICITY1.5 MG/0.5 SC
[2022-07-26 14:12] LABS: BASO # 0.1 10*3/uL (0.0-0.1); EOS # 0.1 10*3/uL (0.0-0.4); EOS % 1.8 % (1.0-4.0); HEMATOCRIT 41.4 % (37.0-47.0); LYMPH # 2.5 10*3/uL (1.3-4.4); LYMPH % 34.5 % (27.0-41.0); MEAN CELL VOLUME 91.2 fl (81.0-99.0); MEAN CORPUSCULAR HGB 29.5 pg (27.0-31.0); MEAN CORPUSCULAR HGB CONC 32.4 g/dl (33.0-37.0); MEAN PLATELET VOLUME 11.6 fl (9.6-12.3); MONO # 0.5 10*3/uL (0.1-1.0); MONO % 6.6 % (3.0-9.0); NEUT # 4.1 10*3/uL (2.3-7.9); NEUT % 55.8 % (47.0-73.0); PLATELET COUNT AUTOMATED 180 10*3/uL (130-400); RED BLOOD COUNT 4.54 10*6/uL (4.10-5.10); RED CELL DISTRI WIDTH 13.3 % (0-14.5); WHITE BLOOD COUNT 7.3 10*3/uL (4.8-10.8)
[2022-07-26 14:37] LABS: CREATININE 1.53 mg/dL (0.55-1.02); FREE T4 1.11 ng/dl (0.89-1.76); POTASSIUM 4.4 mmol/L (3.4-5.1); THYROID STIM HORMONE (HS) 1.122 uIU/ml (0.550-4.780); TOTAL PROTEIN 6.2 gm/dL (6.0-8.0)
== END | disposition home or self-care (01) ==
LOC: LAB 09:53
PROVIDERS: ATTEND Internal Medicine
DX: E55.9 Vitamin D deficiency, unspecified (principal); R53.81 Other malaise; R79.89 Other specified abnormal findings of blood chemistry; D51.9 Vitamin B12 deficiency anemia, unspecified; E03.9 Hypothyroidism, unspecified; D53.9 Nutritional anemia, unspecified; Z13.0 Encounter for screening for diseases of the blood and blood-forming organs and certain disorders involving the immune mechanism; Z13.1 Encounter for screening for diabetes mellitus; Z13.21 Encounter for screening for nutritional disorder; Z13.220 Encounter for screening for lipoid disorders; Z13.228 Encounter for screening for other metabolic disorders; Z13.6 Encounter for screening for cardiovascular disorders; Z13.89 Encounter for screening for other disorder

== ENCOUNTER → 2023-02-05 | Outpatient (CLI) | payer MEDICARE | END | disposition home or self-care (01) | LOC: CT 13:00 | PROVIDERS: ATTEND Internal Medicine | DX: K57.30 Diverticulosis of large intestine without perforation or abscess without bleeding (principal); R10.9 Unspecified abdominal pain; Z90.49 Acquired absence of other specified parts of digestive tract; Z90.5 Acquired absence of kidney ==

== ENCOUNTER → 2023-10-24 | Outpatient (CLI) | payer MEDICARE ==
[~2023-10-24] MED LIST changes: +ELIQUIS5 M1 PO; +GLIPIZIDE5 MG PO; +LASIX20 MG PO; +VITAMIN D350 MCG PO
== END | disposition home or self-care (01) ==
LOC: US 10-23 15:00
PROVIDERS: ATTEND Internal Medicine
DX: I65.23 Occlusion and stenosis of bilateral carotid arteries (principal); R42 Dizziness and giddiness

== ENCOUNTER → 2024-01-31 | Outpatient (CLI) | payer MEDICARE ==
[~2024-01-31] MED LIST changes: +DILTIAZEM 24HR120 M1 PO; +Hydralazine Hyd25 MG PO; +LIPITOR40 MG PO; +VITAMIN B1250 MCG PO; +ZOLOFT50 MG PO
[2024-01-31 14:53] LABS: BILIRUBIN Negative (Negative); BLOOD Negative (Negative); CLARITY Cloudy (Clear); COLOR Yellow (Yellow); GLUCOSE 3+ (Negative); KETONE Trace (Negative); LEUKO ESTERASE Trace (Negative); NITRITE Negative (Negative); PH 5.5 (4.5-8.0); SPECIFIC GRAVITY >= 1.030 (1.001-1.030)
[2024-01-31 15:06] LABS: RBC 0-2 rbc/hpf (0-2); WBC 21-30 wbc/hpf (0-5)
[2024-01-31 15:07] LABS: BACTERIA 1+
== END | disposition home or self-care (01) ==
LOC: LAB 01:19
PROVIDERS: ATTEND Internal Medicine
DX: N39.0 Urinary tract infection, site not specified (principal)

== ENCOUNTER 2024-04-09 14:24 | Emergency (ER) | payer MEDICARE ==
[~2024-04-09] VITALS: Ht 160 cm; Wt 93.0 kg
[2024-04-09 14:36] VITALS: BP 105/58
[2024-04-09 15:27] LABS: BASO % 0.5 % (0.0-1.0); EOS # 0.2 10*3/uL (0.0-0.4); EOS % 2.7 % (1.0-4.0); HEMATOCRIT 39.5 % (37.0-47.0); LYMPH # 1.9 10*3/uL (1.3-4.4); LYMPH % 28.9 % (27.0-41.0); MEAN CELL VOLUME 93.8 fl (81.0-99.0); MEAN CORPUSCULAR HGB 29.2 pg (27.0-31.0); MEAN CORPUSCULAR HGB CONC 31.1 g/dl (33.0-37.0); MEAN PLATELET VOLUME 11.2 fl (9.6-12.3); MONO # 0.4 10*3/uL (0.1-1.0); MONO % 6.1 % (3.0-9.0); NEUT % 61.6 % (47.0-73.0); PLATELET COUNT AUTOMATED 151 10*3/uL (130-400); RED BLOOD COUNT 4.21 10*6/uL (4.10-5.10); WHITE BLOOD COUNT 6.4 10*3/uL (4.8-10.8)
[2024-04-09 15:41] LABS: ACT PARTIAL THROMBO TIME 28.4 SECONDS (20.0-32.1)
[2024-04-09 15:44] LABS: POTASSIUM 4.3 mmol/L (3.4-5.1); TOTAL PROTEIN 5.5 gm/dL (6.0-8.0)
[2024-04-09] MEDS ORDERED: XANAX0.5 MG PO (15:54)
[2024-04-09] MEDS ORDERED: VITAMIN B122500 MCG IM (15:56)
== END 2024-04-09 17:58 | disposition home or self-care (01) ==
LOC: ED 14:24
PROVIDERS: Emergency Medicine
DX: R07.89 Other chest pain (principal); F03.90 Unspecified dementia, unspecified severity, without behavioral disturbance, psychotic disturbance, mood disturbance, and anxiety; Z86.73 Personal history of transient ischemic attack (TIA), and cerebral infarction without residual deficits; I48.91 Unspecified atrial fibrillation; F32.A Depression, unspecified; E11.22 Type 2 diabetes mellitus with diabetic chronic kidney disease; I12.9 Hypertensive chronic kidney disease with stage 1 through stage 4 chronic kidney disease, or unspecified chronic kidney disease; N18.9 Chronic kidney disease, unspecified; Z88.0 Allergy status to penicillin; Z91.048 Other nonmedicinal substance allergy status; Z88.6 Allergy status to analgesic agent; Z88.5 Allergy status to narcotic agent; Z91.040 Latex allergy status; Z88.8 Allergy status to other drugs, medicaments and biological substances; Z90.49 Acquired absence of other specified parts of digestive tract; Z95.5 Presence of coronary angioplasty implant and graft; Z90.710 Acquired absence of both cervix and uterus; Z98.890 Other specified postprocedural states